=== PATIENT | female | born 1995 | race Caucasian/White ===

== ENCOUNTER 2016-06-09 11:52 | Emergency (ER) | payer BC ==
[~2016-06-09] VITALS: Ht 160 cm; Wt 70.3 kg
[2016-06-09] MEDS ORDERED: MICROGESTIN FE1 TA1 PO (12:05)
--- NOTE | 2016-06-09 12:27 | Emergency Room Report ---
History of Present Illness Time Seen by MD Wisdom Presenting Problem in Triage Pt arrived:Walked Presenting Problem:PT REPORTS HEADACHE ON L SIDE OF HEAD THAT BEGAN AT APPROX 0200 THIS MORNING. PT STATES HAS HX OF MIGRAINES BUT PAIN FEELS DIFFERENT THAN HER NORMAL MIGRAINES. PT STATES PAIN IS "ACHING" IN NATURE. PT REPORTS HAS BEEN VOMITTING. 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 N Clinical Suspician of Infection? N Mental Status: 1 - Regular (Normal Baseline) Sepsis Risk:Low Sepsis Risk Have you (or family members/close friends) recently traveled outside the [place]? N If Yes, where/when: Have you had exposure to infectious disease within the past month? N TB? Other? Specify: Source patient, RN notes reviewed Exam Limitations no limitations Comment History of Migraines but at 2:30AM she woke up with a MOON that is worse than her usual migraine Some nausea nad vomiting anf feels lightheaded when standing up. More on the left side of head. She and recently fired some rounds off in their guns and then the MOON got worse. No fever and no visual disturbances.n She is non BCP and has not missed any Cardiac Chest Pain Chest pain indicative of cardiac No ALLERGIES Coded Allergies: No Known Allergies (06/09/16) Home Medications Reported Medications NORETHINDRONE-E.ESTRADIOL-IRON (Microgestin Fe 1-20 Tablet) 1 TAB PO DAILY History Medical History General CAD? No Angina: No OR: No Hypertension? No Hyperlipidemia? No CHF? No DVT? No PE? No COPD? No Asthma? No Anemia? No GERD? No Gastric ulcers? No GI Bleed? No Hernia? No Thyroid Problems? No Hypothyroidism? No CVA? No Seizures? No Diabetes? No Renal Insuffiency? No End Stage Renal Disease? No UTI? No Stones? No GB Disease: No Nephritic Syndrome? No Asplenia? No Hepatitis? No Sickle Cell Disease? No Arthritis? No Migraines? Yes Cataracts? No Glaucoma? No MRSA? No HIV? No TB? No Anxiety? No Depression? No Cancer? No More? No Immunization Hx DT/Tetanus Unknown Surgical Hx Previous Surgery?Y ADNOIDS DENTAL IMPLANTS EAR TUBES X2 VALUER Hx LMP 3 Weeks Ago Social History Smoking Hx Smoker: Never Smoker Tobacco: No Alcohol Alcohol: No Review of Systems All Other Systems Reviewed and Negative Constitutional see HPI ENT see HPI. Psychiatric/Neurological see HPI Physical Exam Vital Signs Vital Signs Date Time Temp Pulse Resp B/P Pulse O2 O2 Flow FiO2 Ox Delivery Rate 06/09 1448 58 16 118/55 100 06/09 1334 18 06/09 1334 62 16 135/75 100 06/09 1156 97.4 71 18 134/88 98 General Appearance normal appearance, WD/WN, no apparent distress Eye Exam - right eye PERRL Ear, Nose, Throat normal ENT inspection Respiratory Status No: respiratory distress. Lung Sounds bilateral: normal breath sounds. 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 No Results/Orders Laboratory Tests 06/09/16 1311: Sodium 139, Potassium 3.7, Chloride 99, Carbon Dioxide 28, BUN 8, Creatinine 0.8 , Estimated Creat Clear 123, Estimated GFR (MDRD) 91, Glucose 95, Calcium 9.2, Total Bilirubin 0.4, AST 15, ALT 21, Alkaline Phosphatase 48, Total Protein 7.8, Albumin 4.1, Globulin 3.7 H, Albumin/Globulin Ratio 1.1, WBC 10.0, RBC 4.93, Hgb 14.8, Hct 44.2, MCV 89.7, RDW 12.5, Plt Count 311, MPV 5.8 L, Gran % 73.1, Gran # 7.3, Lymphocytes % 20.6, Monocytes % 5.1, Eosinophils % 0.9, Basophils % 0.3, Lymphocytes # 2.1, Monocytes # 0.5, Eosinophils # 0.1, Basophils # 0.0, PUBS MCHC 33.6, MCH 30.1 06/09/16 1255: Urine Color YELLOW, Urine Appearance SL CLOUDY, Urine pH 7.0, Ur Specific [place] 1.015, Urine Protein NEGATIVE, Urine Ketones NEGATIVE, Urine Blood NEGATIVE, Urine Nitrate NEGATIVE, Urine Bilirubin NEGATIVE, Urine Urobilinogen 0.2, Ur Leukocyte Esterase TRACE H, Urine WBC 3-5, Ur Squamous Epith Cells 3-5, Urine Bacteria 3+, Urine Glucose NEGATIVE Current Medication Orders Sig/Maki Start time Last Medication Dose Route Stop Time Status Admin Lorazepam 0 .STK-MED ONE 06/09 1331 DC .ROUTE Promethazine HCl 0 .STK-MED ONE 06/09 1331 DC .ROUTE Sodium Chloride 1,000 ML .STK-MED ONE 06/09 1331 DC IV Sodium Chloride 10 ML PRN PRN 06/09 1300 AC IV 06/10 1252 Lorazepam 0.5 MG ONCE ONE 06/09 1245 DC 06/09 IV 06/09 1246 1334 Promethazine HCl 12.5 MG ONCE ONE 06/09 1245 DC 06/09 IV 06/09 1246 1334 Sodium Chloride 25 ML ONCE ONE 06/09 1245 DC IV 06/09 1259 Sodium Chloride 1,000 ML .Q1H1M 06/09 1245 DC 06/09 IV 06/09 1345 1335 Sodium Chloride 10 ML PRN PRN 06/09 1245 AC IV 06/10 1238 Orders Procedure Date/time Status DIET-NOTHING BY MOUTH 06/09 D Active CULTURE, URINE 06/09 1255 Active IV SALINE LOCK 06/[address] HEAD REQ 06/09 1238 Complete URINALYSIS/COMPLETE 06/09 1238 Complete URINE 06/09 1238 Complete CBC WITH AUTO DIFF 06/09 1238 Complete CHEM 12 PROFILE 06/09 1238 Complete Departure Departure Time of Disposition 1502 Disposition DC Home or Self Care(routine) Clinical Impression Primary Impression: Headache Qualifiers: Headache type: unspecified Headache chronicity pattern: unspecified pattern Intractability: not intractable Qualified Code: R51 - Headache Condition STABLE Referrals Jorge Valle MD (Family): 3 Days-Call Office Patient Instructions DI for Headache Additional Instructions Use meds as directed and followup with Dr. Valle if symptoms worsen or return to the ED for re-evaluation Discharge Counseling Counseled pt/family regarding diagnosis, test results, medications/RX, home care, follow up needs Prescriptions Current Visit Scripts BUTALB/ACETAMINOPHEN/CAFFEINE (Fioricet 50-300-40 MG Capsule) 1 CAP PO Q4HP PRN headache #20 CAP ED Critical Care Critical Care No If Critical Care minutes are documented, the time involved in the performance of seperately reportable procedures was not counted toward critical care time documented. I directly delivered medical care to this critically ill and/or injured patient. Timely evaluation and treatment was necessary to address the significant organ system(s) dysfunction present in this patient. at 2043
[2016-06-09 13:04] LABS: URINE BILIRUBIN - DIPSTICK NEGATIVE (NEG); URINE BLOOD NEGATIVE (NEG)
[2016-06-09 13:23] LABS: HEMOGLOBIN 14.8 g/dL (12.2-16.2); LYMPH # 2.1 K/mm3 (0.7-4.5); LYMPH % 20.6 % (10-50.0)
--- NOTE | 2016-06-09 13:37 | RADIOLOGY REPORT PS360 ---
CT HEAD W/O CONTRAST INDICATION: Headache, nausea and vomiting Routine axial images for brain followed by additional post-processing axial bone window images. Axial CT scanning from the base of the skull through the vertex to evaluate the brain was performed. Subsequent post processing 2-D CT bone windows were submitted to PACS and are useful to evaluate calvarium, visualize portions of paranasal sinuses, mastoids and base of skull. Multiaxial scans are obtained from the base of the skull to the vertex and performed without contrast. The base of the skull appeared normal. The ventricular system was normal. There was no ischemic infarct or bleed and there were no extra-axial fluid collections. The bony calvarium appeared intact. IMPRESSION: Negative noncontrast CT scan of the brain.
[2016-06-09] MEDS ORDERED: FIORICET1 CAP PO (15:04)
[2016-06-09 15:30] VITALS: BP 118/55
== END 2016-06-09 15:30 | disposition home or self-care (01) ==
LOC: ER 11:52
PROVIDERS: General Practice
DX: R51 Headache (principal)